=== PATIENT | male | born 1985 ===

== ENCOUNTER → 2024-10-17 | Outpatient (CLI) | payer MEDICARE ==
[2024-10-17 14:59] LABS: BASO # 0.1 10^3/uL (0.0-0.2); BASO % 0.8 % (0.0-1.0); EOS % 0.6 % (0.0-3.0); HEMATOCRIT 45.3 % (42.0-52.0); HEMOGLOBIN 15.1 g/dl (13.5-17.5); LYMPH # 2.1 10^3/uL (1.5-5.0); LYMPH % 29.3 % (24.0-44.0); MEAN CORPUSCULAR HGB CONC 33.3 g/dl (32.0-36.5); MEAN CORPUSCULAR VOLUME 86.9 fl (80.0-96.0); MONO # 0.6 10^3/uL (0.0-0.8); MONO % 8.1 % (2.0-8.0); NEUTROPHILS # 4.4 10^3/uL (1.5-8.5); NEUTROPHILS % 61.1 % (36.0-66.0); PLATELET COUNT, AUTOMATED 318 10^3/uL (150-450); RED BLOOD COUNT 5.21 10^6/uL (4.30-6.10); WHITE BLOOD COUNT 7.3 10^3/uL (4.0-10.0)
[2024-10-17 15:03] LABS: ALBUMIN 3.9 G/DL (3.2-5.2); ALKALINE PHOSPHATASE 68 U/L (40-129); ALT/SGPT 41 U/L (7.0-40); AST/SGOT 25 U/L (<34); BILIRUBIN,TOTAL 0.5 MG/DL (0.3-1.2); BLOOD UREA NITROGEN 12 MG/DL (9-23); CALCIUM LEVEL 9.5 MG/DL (8.5-10.1); CARBON DIOXIDE LEVEL 30 MMOL/L (20-31); CHLORIDE LEVEL 103 MMOL/L (98-107); CREATININE FOR GFR 0.87 MG/DL (0.70-1.30); GLOMERULAR FILTRATION RATE > 90.0 (>60); GLUCOSE, FASTING 86 MG/DL (60-100); POTASSIUM SERUM 4.5 MMOL/L (3.5-5.1); SODIUM LEVEL 140 MMOL/L (136-145); THYROID PEROXIDASE ANTIBODY 35 U/ML (<60.0); THYROID STIMULATING HORMONE 0.639 uIU/ML (0.55-4.78); THYROXINE (T4) 10.6 UG/DL (4.5-10.9); TOTAL PROTEIN 6.9 G/DL (5.7-8.2); TOTAL T3 152.8 NG/DL (60.0-181.0)
[2024-10-17 15:09] LABS: ERYTHROCYTE SEDIMENTATION RATE 7 mm/hr (0-15)
[2024-10-21 14:52] LABS: THRYOGLOBULIN ANTIBODIES (ATA) < 1 IU/mL (< or = 1); THYROGLOBULIN QUANTITATIVE 4.5 ng/mL (2.8-40.9)
[2024-10-22 14:46] LABS: TRYPTASE 4.9 mcg/L (<11.0)
[2024-10-22 15:43] LABS: ANA PATTERN Nuclear, Centromere (NEGATIVE); ANA SCREEN, IFA POSITIVE (NEGATIVE)
== END ==
LOC: M WUC 11:58
PROVIDERS: ATTEND Allergy & Immunology Allergy
DX: L50.1 Idiopathic urticaria (principal); J30.89 Other allergic rhinitis; R21 Rash and other nonspecific skin eruption; R63.5 Abnormal weight gain